=== PATIENT | female | born 1980 | race African-American/Black ===

== ENCOUNTER 2017-02-23 10:44 | Emergency (ER) | payer OTHER ==
[~2017-02-23] VITALS: Ht 165.1 cm; Wt 86.4 kg
[2017-02-23 11:54] LABS: APPEARANCE,URINE CLOUDY (CLEAR); GLUCOSE, URINE (UA) NEGATIVE (NEGATIVE); KETONES,URINE NEGATIVE (NEGATIVE); LEUKOCYTE ESTERASE ,URINE NEGATIVE (NEGATIVE); OCCULT BLOOD,URINE NEGATIVE (NEGATIVE); PH,URINE 5.5 (5.0-8.0); PROTEIN,URINE NEGATIVE (NEGATIVE)
[2017-02-23 11:56] LABS: ADD UA MICROSCOPIC NO
[2017-02-23 12:43] VITALS: BP 104/68
== END 2017-02-23 12:45 | disposition home or self-care (01) ==
LOC: EMS 10:45
DX: R30.0 Dysuria (principal); L29.2 Pruritus vulvae; F12.90 Cannabis use, unspecified, uncomplicated; F17.220 Nicotine dependence, chewing tobacco, uncomplicated
CPT/HCPCS: 99283

== ENCOUNTER 2017-07-01 07:39 | Emergency (ER) | payer OTHER ==
[~2017-07-01] VITALS: Ht 165.1 cm; Wt 86.4 kg
[2017-07-01] MEDS ORDERED: IBUPROFEN 800 MG TABLET PO ONE (10:30)
[2017-07-01] MEDS ORDERED: KETOROLAC TROMETHAMINE 60 MG/2 ML VIAL IM ONE (10:45)
[2017-07-01 11:42] VITALS: BP 127/78
== END 2017-07-01 11:48 | disposition home or self-care (01) ==
LOC: EMS 07:40
DX: S92.514A Nondisplaced fracture of proximal phalanx of right lesser toe(s), initial encounter for closed fracture (principal); W22.8XXA Striking against or struck by other objects, initial encounter; Y93.89 Activity, other specified; Y92.89 Other specified places as the place of occurrence of the external cause; Y99.8 Other external cause status
CPT/HCPCS: 73630; 96372; 99284; J1885

== ENCOUNTER 2019-10-15 18:58 | Emergency (ER) | payer OTHER ==
[~2019-10-15] VITALS: Ht 165.1 cm; Wt 180.0 kg
[2019-10-15] MEDS ORDERED: AMOX500T2 PO (19:34)
[2019-10-15] MEDS ORDERED: NAPR250T4 PO (19:34)
[2019-10-15] MEDS ORDERED: KETOROLAC TROMETHAMINE 30 MG/ML VIAL IM ONE (21:30)
[2019-10-15 22:09] VITALS: BP 133/73
== END 2019-10-15 22:14 | disposition home or self-care (01) ==
LOC: EMS 19:07
DX: K02.9 Dental caries, unspecified (principal); R03.0 Elevated blood-pressure reading, without diagnosis of hypertension; F17.290 Nicotine dependence, other tobacco product, uncomplicated; F12.90 Cannabis use, unspecified, uncomplicated; Z79.899 Other long term (current) drug therapy; Z98.890 Other specified postprocedural states; Z98.51 Tubal ligation status
CPT/HCPCS: 96372; 99283; 99406; J1885

== ENCOUNTER 2019-10-16 23:06 | Emergency (ER) | payer OTHER ==
[~2019-10-16] VITALS: Ht 165.1 cm; Wt 81.8 kg
[~2019-10-16 23:06] MED LIST: AMOX500T2 PO; NAPR250T4 PO
[2019-10-16 23:14] VITALS: BP 126/87
== END 2019-10-17 02:29 | disposition left against medical advice (07) ==
LOC: EMS 23:07
DX: K08.89 Other specified disorders of teeth and supporting structures (principal); Z53.21 Procedure and treatment not carried out due to patient leaving prior to being seen by health care provider

== ENCOUNTER 2022-02-27 07:51 | Emergency (ER) | payer SELFPAY ==
[~2022-02-27] VITALS: Ht 165.1 cm; Wt 104.1 kg
[~2022-02-27 07:51] MED LIST changes: +NAPR-1197 PO; -NAPR250T4 PO
[2022-02-27 08:07] VITALS: BP 124/73
[2022-02-27] MEDS ORDERED: IBUPROFEN 600 MG TABLET PO ONE (08:30)
[2022-02-27] MEDS ORDERED: IBUP-2070 PO (08:32)
== END 2022-02-27 08:38 | disposition home or self-care (01) ==
LOC: EMS 07:51
DX: M54.6 Pain in thoracic spine (principal); M54.2 Cervicalgia; M25.511 Pain in right shoulder; Z98.890 Other specified postprocedural states; Z98.51 Tubal ligation status; F12.90 Cannabis use, unspecified, uncomplicated; V89.2XXA Person injured in unspecified motor-vehicle accident, traffic, initial encounter; Y93.89 Activity, other specified; Y92.481 Parking lot as the place of occurrence of the external cause; Y99.8 Other external cause status
CPT/HCPCS: 99282; Z7502; Z7610